=== PATIENT | female | born 1980 | race Caucasian/White ===

== ENCOUNTER 2017-06-17 18:30 | Emergency (ER) | payer BC ==
[~2017-06-17] VITALS: Ht 165.1 cm; Wt 89.0 kg
[~2017-06-17 18:30] MED LIST: ADDERALL XR 2020 MG PO; ADDERALL20 MG PO; ADVIL,NUPRIN,M200 MG PO; AMOXICILLIN500 MG PO; AUGMENTIN875 MG PO; BENADRYL25 MG PO; COUGH SYRUP; DELTASONE20 M1 PO; DICLOFENAC SOD100 MG PO; EPIPEN ADU0.3 MG/0.3 IM; ERGOCALCIF50000 UNIT PO; FLAGYL500 MG PO; LEVAQUIN750 MG PO; NAPROSYN500 MG PO; NORCO 10/3251 TABLET PO; NORCO 5/3251 TABLET PO; OMEPRAZOLE40 M1 PO; PEPCID20 MG PO; PHENERGAN-CODE120 ML PO; PREDNISONE1 MG PO; PREDNISONE20 MG PO; PRILOSEC40 MG PO; SEROQUEL300 MG PO; VALIUM5 MG PO; VITAMIN B125000 MCG PO; WELLBUTRIN XL150 MG PO; WELLBUTRIN100 MG PO; ZEGERID40 MG PO; ZOFRAN4 MG PO
[2017-06-17] MEDS ORDERED: PHENTERMINE HCL30 MG PO (18:49)
[2017-06-17] MEDS ORDERED: TOPIRAMATE (18:49)
[2017-06-17] MEDS ORDERED: OMEPRAZOLE (18:50)
[2017-06-17] MEDS ORDERED: GLUCOSAMINE & CHONDR (18:50)
[2017-06-17] MEDS ORDERED: WELLBUTRIN (18:50)
[2017-06-17] MEDS ORDERED: VITAMIN D3 (18:50)
[2017-06-17] MEDS ORDERED: SEROQUEL (18:50)
[2017-06-17 19:35] LABS: HEMATOCRIT 43.5 % (36.0-46.0); MCH 29.2 PG (29.0-34.0); MCHC 33.3 G/DL (30.0-36.0); MCV 87.7 FL (83-99); MEAN PLAT.VOLUME 11.1 uM^3 (9.5-12.4); PLATELET COUNT 262 K/uL (156-360); RBC DIS.WIDTH-CV 13.9 % (11.8-14.6); RBC DIS.WIDTH-SD 44.5 % (39-53); RED BLOOD COUNT 4.96 M/uL (3.80-5.20); WHITE BLOOD COUNT 10.6 K/uL (4.1-10.2)
[2017-06-17 19:44] LABS: CHLORIDE 112 mEq/L (99-109); SODIUM 139 mEq/L (136-147)
[2017-06-17 19:46] LABS: GLUCOSE 94 mg/dL (70-99)
[2017-06-17 19:48] LABS: ANION GAP 9 MEQ/L (2-14); TOTAL BILIRUBIN 0.2 mg/dL (0.0-1.0)
[2017-06-17 19:50] LABS: ALKALINE PHOSPHATASE 78 IU/L (3-129); GFR ESTIMATE (CALCULATED) > 59 mL/min/
[2017-06-17 19:51] LABS: UREA NITROGEN (BUN) 16 mg/dL (9-23)
[2017-06-17 19:53] LABS: LIPASE 45 U/L (1.0-51.0)
[2017-06-17 19:59] LABS: QUANTITATIVE HCG < 4.0 MIU/ML
[2017-06-17 20:39] LABS: ADD MIUA? YES; BILIRUBIN NEGATIVE; BLOOD NEGATIVE; COLOR YELLOW ((YELLOW)); GLUCOSE (STRIP) NEGATIVE; KETONES NEGATIVE; LEUKOCYTES MODERATE; NITRITE NEGATIVE; PROTEIN (STRIP) NEGATIVE; SPECIFIC GRAVITY 1.015 (1.000-1.030); UROBILINOGEN 0.2 MG/DL (0.2-1.0)
[2017-06-17 20:45] LABS: BACTERIA RARE /HPF; EPITHELIAL CELLS 1+ /HPF; MUCUS NONE SEEN /LPF; RED BLOOD CELLS 0-5 /HPF (0-5); UCUL ADDED? NO; WHITE BLOOD CELLS 0-5 /HPF (0-5)
[2017-06-17] MEDS ORDERED: ZOFRAN ODT4 MG PO (21:19)
[2017-06-17] MEDS ORDERED: NORCO 5/3251 TABLET PO (21:19)
[2017-06-17 21:31] VITALS: BP 144/87
== END 2017-06-17 21:33 | disposition home or self-care (01) ==
LOC: EME 18:30
PROVIDERS: Physician Assistant
DX: K80.20 Calculus of gallbladder without cholecystitis without obstruction (principal); K21.9 Gastro-esophageal reflux disease without esophagitis; Z87.11 Personal history of peptic ulcer disease; Z91.040 Latex allergy status; Z88.6 Allergy status to analgesic agent; Z88.2 Allergy status to sulfonamides; F17.200 Nicotine dependence, unspecified, uncomplicated
CPT/HCPCS: 76705; 80053; 81003; 83690; 84702; 85027; 99281; 99285; J2405; J3010; J7030